=== PATIENT | female | born 1990 | race Caucasian/White ===

== ENCOUNTER 2018-07-16 23:20 | Emergency (ER) | payer OTHER ==
[2018-07-16 23:46] VITALS: BP 116/73; PULSE 76; TEMP 97.8; BMI 39.3
--- NOTE | 2018-07-17 00:11 | PDOC ---
History of Present Illness - General Chief Complaint: Pain Stated Complaint: HEADACHE/EYE PAIN Time Seen by Provider: 07/17/18 00:10 Past History - Past Medical History Allergies/Adverse Reactions: Allergies Allergy/AdvReac Type Severity Reaction Status Date / Time No Known Allergies Allergy Verified 07/16/18 23:43 Home Medications: Ambulatory Orders Ranitidine HCl [Zantac] 150 mg PO BID PRN #30 tablet 10/14/12 Naproxen [Naprosyn -] 500 mg PO BID #14 tablet 11/05/13 Anemia: Yes COPD: No - Surgical History Abdominal Surgery: Yes (Gastric sleeve) - Immunization History Immunization Up to Date: Yes - Suicide/Smoking/Psychosocial Hx Smoking Status: No Smoking History: Never smoked Have you smoked in the past 12 months: No Number of Cigarettes Smoked Daily: 0 Information on smoking cessation initiated: No Hx Alcohol Use: No Drug/Substance Use Hx: No Substance Use Type: None *Physical Exam - Vital Signs Last Vital Signs Temp Pulse Resp BP Pulse Ox 97.8 F 76 18 116/73 100 07/16/18 23:43 07/16/18 23:43 07/16/18 23:43 07/16/18 23:43 07/16/18 23:43
--- NOTE | 2018-07-17 00:31 | PDOC ---
History of Present Illness - General Chief Complaint: Pain Stated Complaint: HEADACHE/EYE PAIN Time Seen by Provider: 07/17/18 00:10 History Source: Patient Exam Limitations: No Limitations - History of Present Illness Initial Comments: 07/17/18 00:17 Patient is a 28 year old with h/o anemia, c/o headache and diarrhea Tuesday and this week. Tuesday morning woke up congested went out after work but was feel sick. Tuesday 1 day ago woke up worse with sore throat, runny nose, body ache. Today went out to eat but had loss sense of smell and taste. Tonight just [employer] she started to have right eye pain/ retro-orbital, dizziness - spinning. Pain is 8/10 initially now 5/10, stabbing, constant now fading. States has been taking allergy pills for her symptoms, for past 2 days which gave her some relief. She has been having (+) coughing, (+) sneezing. Denies fever, chills, nausea, vomiting. PMX: [facility] PMHX: as above PSOCHX: occ etoh, neg durg, neg cig ALL: NKDA GENERAL/CONSTITUTIONAL: No fever or chills. No weakness. No weight change. HEAD, EYES, EARS, NOSE AND THROAT: No change in vision. No ear pain or discharge. No sore throat. CARDIOVASCULAR: No chest pain or shortness of breath. RESPIRATORY: (+) cough, wheezing, or hemoptysis. GASTROINTESTINAL: No nausea, vomiting, diarrhea or constipation. No rectal bleeding. GENITOURINARY: No dysuria, frequency, or change in urination. MUSCULOSKELETAL: No joint or muscle swelling or pain. No neck or back pain. SKIN AND BREASTS: No rash or easy bruising. NEUROLOGIC: (+) headache, vertigo, (-) loss of consciousness, or loss of sensation. PSYCHIATRIC: No depression or anxiety. ENDOCRINE: No increased thirst. No abnormal weight change. HEMATOLOGIC/LYMPHATIC: No anemia, easy bleeding, or history of blood clots. ALLERGIC/IMMUNOLOGIC: No hives or skin allergy. No latex allergy. GENERAL: The patient is awake, alert, and fully oriented, in no acute distress. HEAD: Normal with no signs of trauma. EYES: Pupils equal, round and reactive to light, extraocular movements intact, sclera anicteric, conjunctiva clear. ENT: Ears normal, nares patent, oropharynx clear without exudates. Moist mucous membranes, (+) mild tenderness to the right paranasal sinus. NECK: Normal range of motion, supple without lymphadenopathy, JVD, or masses. LUNGS: Breath sounds equal, clear to auscultation bilaterally. No wheezes, and no crackles. HEART: Regular rate and rhythm, normal S1 and S2 without murmur, rub. ABDOMEN: Soft, nontender, normoactive bowel sounds. No guarding, no rebound. No masses. EXTREMITIES: Normal range of motion, no edema. No clubbing or cyanosis. No cords, erythema, or tenderness. NEUROLOGICAL: Cranial nerves II through XII grossly intact. Normal speech, normal gait. PSYCH: Normal mood, normal affect. SKIN: Warm, Dry, normal turgor, no rashes or lesions noted. Past History - Past Medical History Allergies/Adverse Reactions: Allergies Allergy/AdvReac Type Severity Reaction Status Date / Time No Known Allergies Allergy Verified 07/16/18 23:43 Home Medications: Ambulatory Orders Fluticasone Prop 0.05% Nasal [Flonase -] 1 - 2 spray NS BID #1 spray.pump Loratadine [Claritin -] 10 mg PO DAILY #10 tablet 07/17/18 Pseudoephedrine HCl [Sudafed] 60 mg PO QID #20 tablet 07/17/18 Anemia: Yes COPD: No - Surgical History Abdominal Surgery: Yes (Gastric sleeve) - Immunization History Immunization Up to Date: Yes - Suicide/Smoking/Psychosocial Hx Smoking Status: No Smoking History: Never smoked Have you smoked in the past 12 months: No Number of Cigarettes Smoked Daily: 0 Information on smoking cessation initiated: No Hx Alcohol Use: No Drug/Substance Use Hx: No Substance Use Type: None *Physical Exam - Vital Signs Last Vital Signs Temp Pulse Resp BP Pulse Ox 97.8 F 76 18 116/73 100 07/16/18 23:43 07/16/18 23:43 07/16/18 23:43 07/16/18 23:43 07/16/18 23:43 Medical Decision Making - Medical Decision Making 07/17/18 00:17 Patient is a 28 year old with h/o anemia, c/o headache and diarrhea Tuesday and this week. Tuesday morning woke up congested went out after work but was feel sick. Tuesday 1 day ago woke up worse with sore throat, runny nose, body ache. Today went out to eat but had loss sense of smell and taste. Tonight just [employer] she started to have right eye pain/ retro-orbital, dizziness - spinning. Pain is 8/10 initially now 5/10, stabbing, constant now fading. States has been taking allergy pills for her symptoms, for past 2 days which gave her some relief. She has been having (+) coughing, (+) sneezing. Denies fever, chills, nausea, vomiting. Symptoms consistent with upper respiratory infection and sinusitis. Decadron 10 mg by mouth, Benadryl 50 mg by mouth and Sudafed 60 mg by mouth I discussed the physical exam findings, ancillary test results and final diagnoses with the patient. I answered all of the patient's questions. The patient was satisfied with the care received and felt comfortable with the discharge plan and treatment plan. The Patient agrees to follow up with the primary care physician within 24-72 hours. *DC/Admit/Observation/Transfer Diagnosis at time of Disposition: Sinus headache Upper respiratory infection Qualifiers: URI type: unspecified URI Qualified Code(s): J06.9 - Acute upper respiratory infection, unspecified - Discharge Dispostion Disposition: HOME Condition at time of disposition: Stable - Prescriptions Prescriptions: Fluticasone Prop 0.05% Nasal [Flonase -] 1 - 2 spray NS BID #1 spray.pump Loratadine [Claritin -] 10 mg PO DAILY #10 tablet Pseudoephedrine HCl [Sudafed] 60 mg PO QID #20 tablet - Referrals - Patient Instructions Printed Discharge Instructions: DI for Sinusitis, DI for Viral Upper Respiratory Infection -- Adult Additional Instructions: Your Discharge Instructions: You must call primary care physician within 24 hours to arrange follow-up. Return to the Emergency Department with any new, persistent or worsening symptoms, for fever, chills, SOB, dizziness or any other concerning changes that may occur. - Post Discharge Activity Forms/Work/School Notes: Back to Work
[2018-07-17] MEDS ORDERED: diphenhydrAMINE HCL 25 MG CAPSULE (FP) PO ONE ×2 (00:32→00:40)
[2018-07-17] MEDS ORDERED: PSEUDOEPHEDRINE HCL 60 MG TABLET PO ONE (00:32)
[2018-07-17] MEDS ORDERED: DEXAMETHASONE 4 MG TABLET (FP) PO ONE (00:34)
[2018-07-17] MEDS ORDERED: DEXAMETHASONE SOD PHOSPHATE 10 MG/1 ML VIAL ONE (00:39)
[2018-07-17] MEDS ORDERED: PSEUDOEPHEDRINE HCL 60 MG TABLET ONE (00:40)
== END 2018-07-17 01:00 | disposition home or self-care (01) ==
LOC: JER 23:20
DX: J06.9 Acute upper respiratory infection, unspecified (principal); J01.90 Acute sinusitis, unspecified; R51 Headache
CPT/HCPCS: 99283-25

== ENCOUNTER 2018-08-15 11:03 | Emergency (ER) | payer OTHER ==
[2018-08-15 11:12] VITALS: BP 126/69; PULSE 87; TEMP 98.3; BMI 35.4
[2018-08-15 11:56] LABS: HCG,QUALITATIVE URINE Negative
--- NOTE | 2018-08-15 12:02 | PDOC ---
History of Present Illness - General Chief Complaint: ,Possible Stated Complaint: TEST Time Seen by Provider: 08/15/18 11:28 History Source: Patient (pt presents for preg test, cannot recall LMP) Exam Limitations: No Limitations Past History - Travel Traveled outside of the country in the last 30 days: No Close contact w/someone who was outside of country & ill: No - Past Medical History Allergies/Adverse Reactions: Allergies Allergy/AdvReac Type Severity Reaction Status Date / Time No Known Allergies Allergy Verified 08/15/18 11:12 Home Medications: Ambulatory Orders NK [No Known Home Medication] 08/15/18 Anemia: Yes COPD: No - Surgical History Abdominal Surgery: Yes (Gastric sleeve) - Immunization History Immunization Up to Date: Yes - Suicide/Smoking/Psychosocial Hx Smoking Status: No Smoking History: Never smoked Have you smoked in the past 12 months: No Number of Cigarettes Smoked Daily: 0 Hx Alcohol Use: No Drug/Substance Use Hx: No Substance Use Type: None Review of Systems - Review of Systems Is the patient limited Setswana proficient: No Constitutional: No: Chills, Fever ABD/GI: No: Abdominal Distended, Diarrhea, Nausea, Vomiting, Indigestion, Abdominal cramping : No: Burning, Dysuria, Discharge, Hematuria, Incontinence, Urgency Neurological: No: Headache, Numbness *Physical Exam - Vital Signs Last Vital Signs Temp Pulse Resp BP Pulse Ox 98.3 F 87 16 126/69 98 08/15/18 11:07 08/15/18 11:07 08/15/18 11:07 08/15/18 11:07 08/15/18 11:07 - Physical Exam General Appearance: Yes: Nourished HEENT: positive: EOMI Respiratory/Chest: positive: Lungs Clear, Normal Breath Sounds Cardiovascular: positive: Regular Rhythm, Regular Rate, S1, S2 Gastrointestinal/Abdominal: positive: Normal Bowel Sounds, Soft Extremity: positive: Normal Capillary Refill, Normal Inspection Integumentary: positive: Normal Color Neurologic: positive: bezel cutter II-XII NML intact, Fully Oriented, Alert ED Treatment Course - ADDITIONAL ORDERS Additional order review: Laboratory Results 08/15/18 11:30 Urine HCG, Qual Negative Medical Decision Making - Medical Decision Making 08/15/18 12:01 28y/o F presents for test, unable to recall LMP, desired . She denies f/c, pelvic pain or vaginal discomfort Pt very upset reporting she was kicked out of "[facility] " clinic this morning. She did not want to disclose why Upreg neg here UA wnl f/u with HEALTH NURSE *DC/Admit/Observation/Transfer Diagnosis at time of Disposition: Encounter for test Qualifiers: test result: negative Qualified Code(s): Z32.02 - Encounter for test, result negative - Discharge Dispostion Disposition: HOME Condition at time of disposition: Stable Decision to Admit order: No - Referrals - Patient Instructions Additional Instructions: Your test was negative today Please follow up with your HEALTH NURSE doctor - Post Discharge Activity
[2018-08-15 12:06] LABS: URINE APPEARANCE CLEAR; URINE BILIRUBIN NEGATIVE (NEGATIVE); URINE COLOR YELLOW; URINE GLUCOSE (UA) NEGATIVE (NEGATIVE); URINE KETONE NEGATIVE (NEGATIVE); URINE LEUK ESTERASE NEGATIVE (NEGATIVE); URINE NITRITE NEGATIVE (NEGATIVE); URINE PROTEIN NEGATIVE (NEGATIVE); URINE UROBILINOGEN 0.2 mg/dL (0.2-1.0)
== END 2018-08-15 12:22 | disposition home or self-care (01) ==
LOC: JERFT 11:03
DX: Z32.02 Encounter for pregnancy test, result negative (principal)
CPT/HCPCS: 81003; 84703; 99281-25

== ENCOUNTER 2018-09-08 15:28 | Emergency (ER) | payer OTHER ==
--- NOTE | 2018-09-08 15:33 | PDOC ---
Rapid Medical Evaluation Time Seen by Provider: 09/08/18 15:29 Medical Evaluation: Allergies Allergy/AdvReac Type Severity Reaction Status Date / Time No Known Allergies Allergy Verified 08/15/18 11:12 09/08/18 15:29 I have performed a brief in-person evaluation of this patient. The patient presents with a chief complaint of: abd pain with N/V/D, just came from [facility] "because it still hurts" - was admitted to psych unit then sent to med floor "final thing was that I was but there was no fetus in the uterus", c/o of vaginal bleeding, "maybe 3 pads an hour". came back from 1.5 months ago. hx of bipolar disorder "i need more medicine." LMP . Pertinent physical exam findings: non-toxic, poor historian I have ordered the following: labs, T&S, US, urine The patient will proceed to the ED for further evaluation.
[2018-09-08 15:34] VITALS: TEMP 98
[2018-09-08 16:32] LABS: BASO % 0.5 % (0-2.0); EOS % 0.5 % (0-4.5); HEMATOCRIT 36.8 % (32.4-45.2); LYMPH % 15.6 % (8-40); MCH 30.3 pg (25.7-33.7); MCHC 32.6 g/dl (32.0-36.0); MEAN CELL VOLUME 92.9 fl (80-96); MEAN PLT VOLUME 9.7 fl (7.5-11.1); MONO % 6.5 % (3.8-10.2); NEUT % 76.9 % (42.8-82.8); PLATELET COUNT 240 K/MM3 (134-434); RBC 3.97 M/mm3 (3.60-5.2); RDW 14.1 % (11.6-15.6); WHITE BLOOD COUNT 8.1 K/mm3 (4.0-10.0)
[2018-09-08 17:07] LABS: INR 1.02 (0.83-1.09)
[2018-09-08 17:52] LABS: BILIRUBIN,TOTAL 0.3 mg/dL (0.2-1); CALCIUM 8.8 mg/dL (8.5-10.1); CREATININE 0.6 mg/dL (0.55-1.3); POTASSIUM 3.9 mmol/L (3.5-5.1); TOT PROT 7.7 g/dl (6.4-8.2)
[2018-09-08] MEDS ORDERED: ONDANSETRON *ODT* 4 MG TABLET SL ONE (17:56)
[2018-09-08] MEDS ORDERED: ONDANSETRON *ODT* 4 MG TABLET ONE (17:59)
[2018-09-08 18:10] LABS: HCG,QUALITATIVE URINE Positive
[2018-09-08 18:12] LABS: EPI CELLS 5.5 /HPF (0-5/HPF); HYALINE CASTS 9 /lpf (0-8); PH,URINE 5.5 (5.0-8.0); URINE APPEARANCE CLEAR; URINE BACTERIA 151.4 /hpf (NEGATIVE); URINE BILIRUBIN NEGATIVE (NEGATIVE); URINE COLOR YELLOW; URINE GLUCOSE (UA) NEGATIVE (NEGATIVE); URINE KETONE NEGATIVE (NEGATIVE); URINE LEUK ESTERASE 1+ (NEGATIVE); URINE NITRITE NEGATIVE (NEGATIVE); URINE PROTEIN NEGATIVE (NEGATIVE); URINE WBC 10 /hpf (0-5)
[2018-09-08] MEDS ORDERED: SODIUM CHLORIDE 1,000 ML IV STA (18:14)
[2018-09-08 18:36] LABS: URINE RBC 4.5 /hpf (0-4)
--- NOTE | 2018-09-08 18:48 | PDOC ---
History of Present Illness - General Chief Complaint: Pain Stated Complaint: SEVERE ABD PAIN - LOWER Time Seen by Provider: 09/08/18 15:29 History Source: Patient Exam Limitations: No Limitations - History of Present Illness Travel History: No Initial Comments: 09/08/18 17:41 28-year-old female presents to ED with continual left suprapubic pain and vaginal bleeding. Patient states was at [facility] for a day and a half but left since she states what else unsafe. Patient states was told that she was but there was a concern for the . Patient states unsure of what was wrong the but decided to come here for a second opinion. Patient states did have an ultrasound done 2 days ago and lab work during her stay. Timing/Duration: reports: constant Quality: reports: mild, cramping Abdominal Pain Onset Location: reports: suprapubic (mid) Pain Radiation: reports: no radiation Activities at Onset: reports: none Aggravating Factors: improves with: None Alleviating Factors: improves with: None Past History - Travel Traveled outside of the country in the last 30 days: No Close contact w/someone who was outside of country & ill: No - Past Medical History Allergies/Adverse Reactions: Allergies Allergy/AdvReac Type Severity Reaction Status Date / Time No Known Allergies Allergy Verified 09/08/18 15:33 Home Medications: Ambulatory Orders NK [No Known Home Medication] 08/15/18 Anemia: Yes COPD: No Psychiatric Problems: Yes (Bipolar) - Surgical History Abdominal Surgery: Yes (Gastric sleeve) - Reproductive History Is Patient Now?: Yes - Immunization History Immunization Up to Date: Yes - Suicide/Smoking/Psychosocial Hx Smoking Status: No Smoking History: Never smoked Have you smoked in the past 12 months: No Number of Cigarettes Smoked Daily: 0 Information on smoking cessation initiated: No Hx Alcohol Use: No Drug/Substance Use Hx: No Substance Use Type: None Patient Lives Alone: No Abd/GI Specific PMHX - Complaint Specific PMHX Colitis: No Review of Systems - Review of Systems Able to Perform ROS?: Yes Constitutional: No: Symptoms Reported HEENTM: No: Symptoms Reported Respiratory: No: Symptoms reported Cardiac (ROS): No: Symptoms Reported ABD/GI: Yes: Abdominal cramping : Yes: Discharge (vaginal bleeding) Musculoskeletal: No: Back Pain Neurological: No: Headache, Dizziness Hematologic/Lymphatic: Yes: Anemia *Physical Exam - Vital Signs Last Vital Signs Temp Pulse Resp BP Pulse Ox 98 F 109 H 19 112/70 100 09/08/18 15:30 09/08/18 15:30 09/08/18 15:30 09/08/18 15:30 09/08/18 15:30 - Physical Exam General Appearance: Yes: Nourished, Appropriately Dressed. No: Apparent Distress HEENT: positive: Pharynx Normal. negative: Pale Conjunctivae Neck: positive: Normal Thyroid, Supple Respiratory/Chest: positive: Lungs Clear, Normal Breath Sounds. negative: Respiratory Distress, Accessory Muscle Use Cardiovascular: positive: Regular Rhythm, Regular Rate. negative: Murmur Female Pelvic Exam: positive: cervical os closed, adnexal tenderness (left), vaginal bleeding (dark red no clots). negative: CMT Gastrointestinal/Abdominal: positive: Soft, Tenderness (mid suprapubic left suprapubic) Extremity: positive: Normal Inspection Integumentary: positive: Normal Color, Warm, Moist Neurologic: positive: Motor Strength 5/5 (ambulatory) ED Treatment Course - LABORATORY CBC & Chemistry Diagram: 09/08/18 16:06 09/08/18 16:06 - ADDITIONAL ORDERS Additional order review: Laboratory Results 09/08/18 09/08/18 09/08/18 17:30 16:06 16:06 PT with INR 12.00 INR 1.02 Sodium Potassium Chloride Carbon Dioxide Anion Gap BUN Creatinine Est GFR (CKD-EPI)AfAm Est GFR (CKD-EPI)NonAf Random Glucose Calcium Total Bilirubin AST ALT Alkaline Phosphatase Total Protein Albumin Lipase Urine Color Yellow Urine Appearance Clear Urine pH 5.5 D Ur Specific [place] 1.022 Urine Protein Negative Urine Glucose (UA) Negative Urine Ketones Negative Urine Blood 3+ H Urine Nitrite Negative Urine Bilirubin Negative Urine Urobilinogen 1.0 Ur Leukocyte Esterase 1+ H Urine WBC (Auto) 10 Urine RBC (Auto) 4.5 Urine Casts (Auto) 9 U Epithel Cells (Auto) 5.5 Urine Bacteria (Auto) 151.4 Urine HCG, Qual Positive Blood Type A POSITIVE Antibody Screen Negative 09/08/18 16:06 PT with INR INR Sodium 138 Potassium 3.9 Chloride 107 Carbon Dioxide 24 Anion Gap 7 L BUN 11 Creatinine 0.6 Est GFR (CKD-EPI)AfAm 145.80 Est GFR (CKD-EPI)NonAf 125.80 Random Glucose 91 Calcium 8.8 Total Bilirubin 0.3 AST 11 L ALT 17 Alkaline Phosphatase 59 Total Protein 7.7 Albumin 4.0 Lipase 148 Urine Color Urine Appearance Urine pH Ur Specific [place] Urine Protein Urine Glucose (UA) Urine Ketones Urine Blood Urine Nitrite Urine Bilirubin Urine Urobilinogen Ur Leukocyte Esterase Urine WBC (Auto) Urine RBC (Auto) Urine Casts (Auto) U Epithel Cells (Auto) Urine Bacteria (Auto) Urine HCG, Qual Blood Type Antibody Screen 09/08/18 16:06 RBC 3.97 MCV 92.9 MCHC 32.6 RDW 14.1 MPV 9.7 Neutrophils % 76.9 Lymphocytes % 15.6 D Monocytes % 6.5 Eosinophils % 0.5 Basophils % 0.5 - Medications Given in the ED: ED Medications Discontinued Medications Generic Name Dose Route Start Last Admin Trade Name Freq PRN Reason Stop Dose Admin Ondansetron HCl 4 mg 09/08/18 17:56 09/08/18 18:06 Zofran Odt - SL 09/08/18 17:57 4 mg ONCE ONE Administration Medical Decision Making - Medical Decision Making 09/08/18 17:50 Chief complaint: Lower abdominal pain and continual vaginal bleeding. Patient signed out of [facility] this morning and came here for a second opinion since she was unsure of what was going on at [facility]. Exam: Left adnexal left suprapubic tenderness with dark red blood noted in vault Plan: Labs, urine, ultrasound 09/08/18 18:01 spoke to [facility] nurse practitioner Mouna who states patient had a beta hCG done on the which was 837 and then repeated this morning and was noted to be 1133. Patient also had an ultrasound done 2 days ago which showed left adnexal fluid with the left hypoechoic mass to the left ovary. At this time patient is concerning for an ectopic . Will order preop labs and will make patient nothing by mouth although patient just ate hungarian fries and a grilled cheese sandwich prior to my arrival. IV fluids ordered and placed in room 5 09/08/18 18:54 Laboratory Tests 09/08/18 09/08/18 09/08/18 16:06 16:06 16:06 WBC 8.1 Hgb 12.0 Hct 36.8 MCV 92.9 PT with INR 12.00 INR 1.02 Sodium 138 Potassium 3.9 Chloride 107 Carbon Dioxide 24 Anion Gap 7 L BUN 11 Creatinine 0.6 Random Glucose 91 Calcium 8.8 Total Bilirubin 0.3 AST 11 L ALT 17 Alkaline Phosphatase 59 Total Protein 7.7 Albumin 4.0 Lipase 148 Ultrasound shows no uterine masses seen. A prominent endometrium of 12 mm thickness is identified. There is no sonographic evidence of a viable antra gestation. The very early as clinically suspected, correlation with serial beta hCG levels and sonogram as recommended. Within the left adnexa there is a distended tubular structure that does continue taking complex material. This most likely represents a hydro-Pyosalpinx. Free fluid is identified within both adnexal regions. The possibility of ectopic cannot be excluded as well. Patient is pending beta hCG. Will endorse to resident velasco
[2018-09-08 19:30] LABS: INR 0.99 (0.83-1.09); PROTHROMBIN TIME (PATIENT) 11.7 SEC (9.7-13.0)
--- NOTE | 2018-09-08 20:08 | PDOC ---
*Physical Exam - Vital Signs Last Vital Signs Temp Pulse Resp BP Pulse Ox 98 F 109 H 19 112/70 100 09/08/18 15:30 09/08/18 15:30 09/08/18 15:30 09/08/18 15:30 09/08/18 15:30 ED Treatment Course - LABORATORY CBC & Chemistry Diagram: 09/08/18 16:06 09/08/18 16:06 - ADDITIONAL ORDERS Additional order review: Laboratory Results 09/08/18 09/08/18 09/08/18 18:23 17:30 16:06 PT with INR 11.70 12.00 INR 0.99 1.02 Sodium Potassium Chloride Carbon Dioxide Anion Gap BUN Creatinine Est GFR (CKD-EPI)AfAm Est GFR (CKD-EPI)NonAf Random Glucose Calcium Total Bilirubin AST ALT Alkaline Phosphatase Total Protein Albumin Lipase Beta HCG, Quant Urine Color Yellow Urine Appearance Clear Urine pH 5.5 D Ur Specific [place] 1.022 Urine Protein Negative Urine Glucose (UA) Negative Urine Ketones Negative Urine Blood 3+ H Urine Nitrite Negative Urine Bilirubin Negative Urine Urobilinogen 1.0 Ur Leukocyte Esterase 1+ H Urine WBC (Auto) 10 Urine RBC (Auto) 4.5 Urine Casts (Auto) 9 U Epithel Cells (Auto) 5.5 Urine Bacteria (Auto) 151.4 Urine HCG, Qual Positive Blood Type Antibody Screen 09/08/18 09/08/18 16:06 16:06 PT with INR INR Sodium 138 Potassium 3.9 Chloride 107 Carbon Dioxide 24 Anion Gap 7 L BUN 11 Creatinine 0.6 Est GFR (CKD-EPI)AfAm 145.80 Est GFR (CKD-EPI)NonAf 125.80 Random Glucose 91 Calcium 8.8 Total Bilirubin 0.3 AST 11 L ALT 17 Alkaline Phosphatase 59 Total Protein 7.7 Albumin 4.0 Lipase 148 Beta HCG, Quant 1050.0 Urine Color Urine Appearance Urine pH Ur Specific [place] Urine Protein Urine Glucose (UA) Urine Ketones Urine Blood Urine Nitrite Urine Bilirubin Urine Urobilinogen Ur Leukocyte Esterase Urine WBC (Auto) Urine RBC (Auto) Urine Casts (Auto) U Epithel Cells (Auto) Urine Bacteria (Auto) Urine HCG, Qual Blood Type A POSITIVE Antibody Screen Negative 09/08/18 16:06 RBC 3.97 MCV 92.9 MCHC 32.6 RDW 14.1 MPV 9.7 Neutrophils % 76.9 Lymphocytes % 15.6 D Monocytes % 6.5 Eosinophils % 0.5 Basophils % 0.5 - Medications Given in the ED: ED Medications Discontinued Medications Generic Name Dose Route Start Last Admin Trade Name Michaela PRN Reason Stop Dose Admin Sodium Chloride 1,000 mls @ 1,000 mls/hr 09/08/18 18:14 09/08/18 18:26 Normal Saline - IV 09/08/18 19:13 1,000 mls/hr ASDIR STA Administration Ondansetron HCl 4 mg 09/08/18 17:56 09/08/18 18:06 Zofran Odt - SL 09/08/18 17:57 4 mg ONCE ONE Administration Medical Decision Making - Medical Decision Making 09/08/18 19:[address] Agee, will assess pt in the ED Pt comfortable in bed, sitting up, NAD LMP August 26 Beta trending up with no positive IUP 09/08/18 21:01 Dr. Hensley assessed pt, states she is a good candidate for outpatient methotrexate, redraw of beta Tuesday and will see her in office 09/08/18 21:34 Vitals WNL continues to be in NAD, ambulates without difficulty. OB placed Methotrexate order Pt safe for DC home, repeat beta Tuesday, F/U OB next week and strict return precatuions Pt understands and agrees with plan *DC/Admit/Observation/Transfer Diagnosis at time of Disposition: Abdominal pain - Discharge Dispostion Disposition: HOME Condition at time of disposition: Stable Decision to Admit order: No - Referrals Referrals: Sincere Tinoco MD [Staff Physician] - [facility] [place] [Provider Group] - Patient Instructions Printed Discharge Instructions: DI for Ectopic , DI for Abdominal Pain -Adult Additional Instructions: Please see your Primary Doctor within the next 48 hours. Have a repeat beta HCG done on Tuesday and make it to your [employer] visit with Dr. Tinoco next week. Return to the ER for new or concerning symptoms including but not limited to: abdominal pain, bloody vaginal discharge, high fevers, inability to eat or drink. Thank you - Post Discharge Activity
[2018-09-08 20:19] VITALS: PULSE 98
[2018-09-08 21:03] VITALS: BP 129/81; BMI 37.2
--- NOTE | 2018-09-08 21:07 | CONSULT ---
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 She reports the pain 12/26 but improved since in ER. Patient was able to communicate easily and no evidence of acute distress. 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 She also mentioned eating recently as she was hungry. 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: No: Alzheimer's, CVA, Dementia, Migraine, Multiple Sclerosis, Peripheral Neuropathy, Parkinson's, Seizure, Syncope, TIA, Vertigo, Other Cardio/Vascular: No: AFIB, Aneurysm, Aortic Insufficiency, Aortic Stenosis, CAD , CHF, Deep Vein Thrombosis, HTN, Hyperlipdemia, NH, Mitral Insufficiency, Mitral Stenosis, Murmur, Pulmonary Hypertension, Other Pulmonary: No: Asthma, Bronchitis, Cancer, COPD, O2 Dependent, Pneumonia, Previously Intubated, Pulmonary Embolus, Pulmonary Fibrosis, Sleep Apnea, Other Gastrointestinal: Yes: Other (H/O gastric surgery for weight loss) Hepatobiliary: No: Cirrhosis, Cholelithiasis, Cholecystitis, Choledocholithiasis , Hepatitis A, Hepatitis B, Hepatitis C, Other Renal/: No: Renal Failure, Renal Inusuff, BPH, Cancer, Hematuria, Hemodialysis , Neurogenic Bladder, Renal Calculi, UTI, Other Reproductive: Yes: Other (H/O abnormal shaped uterus and chlamydia as per patient) ...LMP: 08/26/18 ...: Yes ...: 1 Heme/Onc: Yes: Anemia Infectious Disease: No: AIDS, C-Diff, Herpes Zoster, HIV, MRSA, STD's, Tuberculosis, VREF, Other Psych: Yes: Bipolar (not on medications) Rheumatology: No: Fibromyalgia, Gout, Lupus, Rheumatoid Arthritis, Sarcoidosis, Vasculitis, Other ENT: No: Allergic Rhinitis, Sinusitis, Other Endocrine: No: Prescott's Disease, James's Disease, Diabetes Insipidus, Diabetes Mellitus, Hyperparathyroidism, Hyperthyroidism, Hypothyroidism, Osteopenia, SIADH, Other Dermatology: No: Basal Cell, Cellulitis, Eczema, Melanoma, Psoriasis, Squamous Cell, Other - Past Surgical History Additional Surgical History: weight loss surgery - Alcohol/Substance Use Hx Alcohol Use: No History of Substance Use: reports: None - Smoking History Smoking history: Never smoked Have you smoked in the past 12 months: No Aproximately how many cigarettes per day: 0 - Social History ADL: Independent Home Medications - Allergies Allergies/Adverse Reactions: Allergies Allergy/AdvReac Type Severity Reaction Status Date / Time No Known Allergies Allergy Verified 09/08/18 15:33 - Home Medications Home Medications: Ambulatory Orders NK [No Known Home Medication] 08/15/18 Family Disease History - Family Disease History Family History: Unable to Obtain (deferred) Review of Systems - Review of Systems Constitutional: reports: No Symptoms Eyes: reports: No Symptoms HENT: reports: No Symptoms Neck: reports: No Symptoms Cardiovascular: reports: No Symptoms Respiratory: reports: No Symptoms Gastrointestinal: reports: No Symptoms, Abdominal Pain (LLQ intermittent for the last 5 days) Genitourinary: reports: Vaginal Bleeding (mild) Breasts: reports: No Symptoms Reported Musculoskeletal: reports: No Symptoms Integumentary: reports: No Symptoms Neurological: reports: No Symptoms Endocrine: reports: No Symptoms Hematology/Lymphatic: reports: No Symptoms Psychiatric: reports: No Symptoms Pain Intensity: 6 Physical Exam Vital Signs: Vital Signs Temperature 98 F 09/08/18 15:30 Pulse Rate 98 H 09/08/18 20:18 Respiratory Rate 18 09/08/18 20:18 Blood Pressure 123/79 09/08/18 20:18 O2 Sat by Pulse Oximetry (%) 100 09/08/18 20:18 Constitutional: Yes: Well Nourished, No Distress (patient appears anxious) Eyes: Yes: WNL HENT: Yes: WNL, Atraumatic, Normocephalic Neck: Yes: WNL, Supple Respiratory: Yes: WNL, Regular Gastrointestinal: Yes: Soft, Abdomen, Obese, Tenderness (on palpation of LLQ), Tenderness, Epigastrium (none), Tenderness, Rebound (none), Other (no guarding) Edema: No Psychiatric: Yes: Alert, Oriented Labs: CBC, BMP 09/08/18 16:06 09/08/18 16:06 Imaging - Results Ultrasound: Report Reviewed Problem List - Problems (1) Early stage of Code(s): Z34.90 - ENCNTR FOR SUPRVSN OF NORMAL , UNSP, UNSP TRIMESTER (2) , ectopic Assessment/Plan: 28 y/o G1 presenting with intermittent LLQ pain and VB for the last 5 days. Lab work and sono reviewed. ER attending reports previous hcg in 800's on 09/05/18. Patient is in stable condition with no acute abdomen. All possible diagnoses discussed including high probability of ectopic . Patient expressed understanding and all questions answered. She desires to proceed with management of ectopic due to its high probability. All possible management option including expectant management, medical treatment and surgical discussed. Methotrexate explained including its risks, complications and importance to follow up. No absolute contraindication exists. Patient was instructed to present to [facility] tract on 09/11/18 for repeat hcg and on 09/14/18. Code(s): O00.90 - UNSPECIFIED ECTOPIC WITHOUT INTRAUTERINE Assessment/Plan as documented -Measure official weight and height -Administer methotrexate accordingly -Follow up as explained -Return to ER PRN as specified by ruptured ectopic precautions
[2018-09-08] MEDS ORDERED: METHOTREXATE SODIUM/PF 25 MG/ML VIAL IM ONE (21:31)
--- NOTE | 2018-09-08 21:35 | CONSULT ---
Consult - text type - Consultation Consultation Note: Patient reports being Rh+ and blood card donation consistent with it
== END 2018-09-08 22:47 | disposition home or self-care (01) ==
LOC: JER 15:28
PROC: 3E0337Z Introduction of Electrolytic and Water Balance Substance into Peripheral Vein, Percutaneous Approach (ICD-10-PCS; principal; 2018-09-08)
PROC: 3E023GC Introduction of Other Therapeutic Substance into Muscle, Percutaneous Approach (ICD-10-PCS; 2018-09-08)
DX: O00.90 Unspecified ectopic pregnancy without intrauterine pregnancy (principal); Z3A.00 Weeks of gestation of pregnancy not specified
CPT/HCPCS: 36415; 76817-TC; 80053; 81003; 83690; 84702; 84703; 85025; 85610; 86850; 86900; 86901; 87086; 99283-25; J7030; J9260; Q0162

== ENCOUNTER 2018-09-11 08:20 | Emergency (ER) | payer SELFPAY, OTHER | END 2018-09-11 10:24 | disposition home or self-care (01) | LOC: JERFT 08:20 ==

== ENCOUNTER 2018-09-21 07:20 | Emergency (ER) | payer OTHER | END 2018-09-21 12:47 | disposition home or self-care (01) | LOC: JER 07:20 ==